=== PATIENT | female | born 1945 | race Two or more races ===

== ENCOUNTER 2018-11-08 21:31 | Emergency (ER) | payer MEDICAID ==
[~2018-11-08] VITALS: Ht 162.6 cm; Wt 61.2 kg
--- NOTE | 2018-11-08 21:40 | Emergency Room Report ---
History of Present Illness General Chief Complaint: Lower Extremity Injury Source: Patient Present Illness [facility] This is a 73-year-old female with a history of hypertension. She presents with chief complaint of right foot pain and bleeding. She had a varicose vein and it was bleeding and possible infection. She went to see her doctor at the clinic 5 days ago. She was placed on Keflex and Bactrim. She was doing well until today when she was in the shower and started bleeding everywhere. Now there is some tenderness and bruising to that area. No new trauma. Bleeding is stopped. Denies any other complaint. Fever chills. Worse with walking. Better with rest and elevation. Allergies: Coded Allergies: No Known Allergies (Unverified , 11/08/18) Patient History Past Medical History: see triage record, old chart reviewed, HTN Past Surgical History: none Pertinent Family History: none Now: No Immunizations: other Reviewed Nursing Documentation: PMH: Agreed; PSxH: Agreed Nursing Documentation-PMH Past Medical History: No History, Except For Hx Hypertension: Yes Review of Systems Eye: Denies: eye pain, blurred vision ENT: Denies: ear pain, nose congestion, throat swelling Respiratory: Denies: cough, shortness of breath Cardiovascular: Denies: chest pain, palpitations Gastrointestinal: Denies: abdominal pain, diarrhea, nausea, vomiting Musculoskeletal: Reports: joint pain, joint swelling; Denies: back pain Skin: Denies: rash Neurological: Denies: headache, numbness Endocrine: Denies: increased thirst, increased urine Hematologic/Lymphatic: Denies: easy bruising All Other Systems: negative except mentioned in HPI Physical Exam Vital Signs Date Time Temp Pulse Resp B/P (MAP) Pulse Ox O2 Delivery O2 Flow Rate FiO2 11/08/18 21:27 99.0 107 16 121/77 (92) 96 Room Air vitals normal except for tachycardia Sp02 EP Interpretation: reviewed, normal General Appearance: well appearing, no apparent distress, alert Head: normocephalic, atraumatic Eyes: bilateral eye PERRL, bilateral eye EOMI ENT: hearing grossly normal, normal pharynx Neck: full range of motion, supple, no meningismus Respiratory: chest non-tender, lungs clear, normal breath sounds Cardiovascular #1: regular rate, rhythm, no murmur Gastrointestinal: normal bowel sounds, non tender, no mass, no organomegaly, no bruit, non-distended Musculoskeletal: back normal, gait/station normal, normal range of motion, other - Rt ankle: varicose vein. no active bleeding. 3x4 cm area of ecchymosis Psychiatric: mood/affect normal Medical Decision Making Diagnostic Impression: Primary Impression: Varicose vein of leg Qualified Codes: I83.91 - Asymptomatic varicose veins of right lower extremity ER Course This patient presents with a bleeding varicose vein. No evidence of active bleeding right now. She has multiple small veins in that area. I feel that suturing will cause more problem. I put a pressure dressing over that area. Will discharge home. Patient still has 5 more days of her antibiotics. No active infection going on. Will discharge home. Last Vital Signs Date Time Temp Pulse Resp B/P (MAP) Pulse Ox O2 Delivery O2 Flow Rate FiO2 11/08/18 21:27 99.0 107 16 121/77 (92) 96 Room Air Status: improved Disposition: HOME, SELF-CARE Condition: Stable Additional Instructions: Continue with antibiotics. Follow-up with your doctor in 7 days. Hold pressure of bleeding. Return if worse. Bruce Reyes MD Nov 08, 2018 21:40
[2018-11-08] MEDS ORDERED: cefTRIAXone 1 GM in NS 55 ML IVPB ONE (21:45)
[2018-11-08] MEDS ORDERED: Surgicel 4in x 8in TOPIC ONE (21:45)
--- NOTE | 2018-11-08 21:53 | NUR ---
ED Nurse Note: Pt BIBA from home c/o redness and pain in R medial ankle. Pt reports a varicose vein burst days ago, she was seen and given antibiotics but it has worsened. Pt is A&Ox4, no signs of distress
[2018-11-08 22:22] LABS: BASOPHILS % (AUTO) 0.7 % (0.0-2.0); EOSINOPHILS % (AUTO) 0.2 % (0.0-3.0); HEMATOCRIT 35.1 % (37.0-47.0); HEMOGLOBIN 11.9 G/DL (12.0-16.0); LYMPHOCYTES % (AUTO) 22.3 % (20.0-45.0); MEAN CORPUSCULAR VOLUME 88 FL (80-99); MONOCYTES % (AUTO) 5.6 % (1.0-10.0); NEUTROPHILS % (AUTO) 71.2 % (45.0-75.0); PLATELET COUNT 200 K/UL (150-450); RED BLOOD COUNT 4.01 M/UL (4.20-5.40); RED CELL DISTRIBUTION WIDTH 11.7 % (11.6-14.8); WHITE BLOOD COUNT 6.1 K/UL (4.8-10.8)
[2018-11-08 22:30] LABS: ANION GAP 10 mmol/L (5-15); BLOOD UREA NITROGEN 21 mg/dL (7-18); CALCIUM 9.3 MG/DL (8.5-10.1); CARBON DIOXIDE 26 MMOL/L (21-32); CHLORIDE 105 MMOL/L (98-107); CREATININE 1.2 MG/DL (0.55-1.30); POTASSIUM 3.3 MMOL/L (3.5-5.1); SODIUM 141 MMOL/L (136-145)
[2018-11-08 22:45] VITALS: BP 121/77
--- NOTE | 2018-11-08 22:45 | NUR ---
ER DISCHARGE NOTE: Patient is cleared to be discharged per ERMD, pt is aox4, on room air, with stable vital signs. pt was given dc and prescription instructions, pt was able to verbalize understanding, pt id band and iv site removed without complications. pt is able to ambulate with steady gait. pt took all belongings. Pt awaiting taxi
== END 2018-11-08 22:45 | disposition home or self-care (01) ==
LOC: EDBD 21:31 → EMR 22:00
DX: I83.91 Asymptomatic varicose veins of right lower extremity (principal); I10 Essential (primary) hypertension
CPT/HCPCS: 36415; 80048; 85025; 96365; 99284; J0696